=== PATIENT | male | born 1980 | race African-American/Black ===

== ENCOUNTER 2023-09-08 12:22 | Emergency (ER) | payer MEDICAID ==
[~2023-09-08] VITALS: Ht 177.8 cm; Wt 81.6 kg
[2023-09-08 12:38] VITALS: BP 141/88; PULSE 105; RESP 18; TEMP 98; O2SAT 100
[2023-09-08 14:00] LABS: BASOPHILS # (AUTO) 0.1 K/uL (0.00-0.22); BASOPHILS % (AUTO) 0.5 % (0.0-2.0); EOSINOPHILS % (AUTO) 0.2 % (0.0-4.0); HEMATOCRIT 35.7 % (36-52); HEMOGLOBIN 11.6 g/dL (12.0-18.0); LYMPHOCYTES # (AUTO) 1.3 K/uL (2.0-11.5); MEAN CORPUSCULAR HEMOGLOBIN 28 pg (27-31); MEAN CORPUSCULAR HGB CONC 33 g/dL (33-37); MEAN CORPUSCULAR VOLUME 86.5 fL (80-94); MONOCYTES % (AUTO) 7.4 % (1.7-9.3); NEUTROPHILS # (AUTO) 10.6 K/uL (1.8-7.7); NEUTROPHILS % (AUTO) 81.9 % (42.2-75.2); PLATELET COUNT (AUTO) 224 K/uL (140-450); RED BLOOD CELL COUNT(AUTO) 4.13 MIL/uL (4.20-6.10); RED CELL DISTRIBUTION WIDTH 14.1 % (11.6-13.7); WHITE BLOOD COUNT (AUTO) 12.9 K/uL (4.8-10.8)
[2023-09-08 14:07] LABS: INR 0.95 (0.8-1.2); PARTIAL THROMBOPLASTIN TIME 21.8 secs (22-35.6)
[2023-09-08 14:13] LABS: ALBUMIN 3.4 g/dL (3.4-5.0); ANION GAP 11.6 (8-16); CALCIUM 8.6 mg/dL (8.5-10.1); CARBON DIOXIDE 27.9 mmol/L (21-32); CREATININE 1.4 mg/dL (0.6-1.3); POTASSIUM 4.5 mmol/L (3.5-5.1); TOTAL BILIRUBIN 0.2 mg/dL (0.0-1.0); TOTAL PROTEIN, SERUM 6.4 g/dL (6.4-8.2)
[2023-09-08 15:58] VITALS: BP 146/89; PULSE 92; RESP 11; TEMP 97.1; O2SAT 98
== END 2023-09-08 15:24 | disposition short-term general hospital (02) ==
LOC: MED 12:22
DX: S41.111A Laceration without foreign body of right upper arm, initial encounter (principal); W34.09XA Accidental discharge from other specified firearms, initial encounter; Y93.89 Activity, other specified; Y92.89 Other specified places as the place of occurrence of the external cause; Y99.8 Other external cause status
CPT/HCPCS: 36415; 70450; 73060; 80053; 85025; 85610; 85730; 90471; 90715; 99285; G0482; Q0092; Q9967